=== PATIENT | female | born 1935 | race Caucasian/White ===

== ENCOUNTER 2018-06-11 11:31 | Emergency (ER) | payer OTHER, BC ==
--- NOTE | 2018-06-11 12:29 | EDPHY ---
H & P Stated Complaint: episode of confusion @ 10am-[id number]--keq resolved Time Seen by Provider: 06/11/18 12:28 - Personal History Current Tetanus Diphtheria and Acellular Pertussis (TDAP): No - Medical/Surgical History Hx Asthma: No Hx Chronic Respiratory Disease: No Hx Diabetes: No Hx Cardiac Disease: No Hx Renal Disease: No Hx Cirrhosis: No Hx Alcoholism: No Hx HIV/AIDS: No Hx Splenectomy or Spleen Trauma: No Other PMH: appy 1965. hyperlipidemia - Social History Smoking Status: Never smoked Constitutional: Initial Vital Signs Temperature (C) 36.4 C 06/11/18 11:37 Heart Rate 89 06/11/18 11:37 Respiratory Rate 16 06/11/18 11:37 Blood Pressure 150/81 H 06/11/18 11:37 O2 Sat (%) 98 06/11/18 11:37 O2 Delivery Mode Room Air Allergies/Adverse Reactions: Sulfa (Sulfonamide Antibiotics) Allergy (Verified 06/11/18 11:36) Home Medications: Medication Instructions Recorded Zetia 06/11/18 Medical Decision Making - Diagnostics Imaging: Discussed imaging studies w/ call center associate Radiologist, I viewed and interpreted images myself ED Course/Re-evaluation: CHIEF COMPLAINT: Memory loss/confusion HISTORY OF PRESENT ILLNESS: The patient is an 83 y/o female arriving with her for evaluation of a period of confusion this morning. She does not remember this incident and is not aware that anything was wrong. Her says around 09:00 this morning while at the table for breakfast she had a period of confusion and had difficulty remembering details for a 1-2-hour period. These symptoms have completely resolved. She denies weakness, paresthesias, headache, vision changes, hearing difficulty, or other complaints. No recent illness or trauma. She says, "I feel like I could get up and vacuum the hospital." REVIEW OF SYSTEMS: A comprehensive 10 system review of systems is otherwise negative aside from elements mentioned in the history of present illness and medical decision making. PHYSICAL EXAM: HR, BP, O2 Sat, RR. Temp noted General Appearance: Alert, well hydrated, appropriate, and non-toxic appearing. Head: Atraumatic without scalp tenderness or obvious injury Eyes: Pupils equal, round, reactive to light and accommodation, EOMI, no trauma , no injection. Nose: Atraumatic, no rhinorrhea, clear. Throat: Mucus membranes moist. Neck: Supple, nontender, no lymphadenopathy. Respiratory: No retractions, no distress, no wheezes, and no accessory muscle use. Lungs are clear to auscultation bilaterally. Cardiovascular: Regular rate and rhythm, no murmurs, rubs, or gallops. Good capillary refill all extremities. Gastrointestinal: Abdomen is soft, nontender, non-distended, no masses, no rebound, no guarding, no peritoneal signs. Musculoskeletal: Normal active ROM of all extremities, atraumatic. Neurological: Alert, appropriate, and interactive. The patient has non-focal cranial nerves, motor, sensory, and cerebellar exam. Skin: No rashes, good turgor, no nodules on palpation. Past medical history: Hyperlipidemia Past surgical history: appendectomy Family history: Noncontributory Social history: Visiting from [place]. Son lives locally. DIAGNOSTICS/PROCEDURES/CRITICAL CARE TIME: Brain MRI: nothing acute DIFFERENTIAL DIAGNOSIS: The differential diagnosis for the patient's neurologic deficits included but was not limited to peripheral causes, central causes including CVA, TIA, electrolyte abnormalities and dehydration, cardiogenic causes, atypical causes like migraine syndrome. MEDICAL DECISION MAKING: This is an 83 y/o female who presents after a 2-hour period of amnesia this morning with no other associated deficits. She has a normal neuro exam. Presentation is consistent with transient global amnesia. CVA less likely. Brain MRI ordered for further evaluation. Nothing acute on MRI, which is consistent with transient global amnesia. Reevaluated patient and discussed findings. She continues to have a normal exam here. Discussed standard care instructions and recommended follow up with her doctor upon returning home as needed. Return precautions discussed. She is comfortable with plan for discharge. - Data Points Laboratory Results: Laboratory Results 06/11/18 12:06 06/11/18 12:06 06/11/18 06/11/18 12: 12:06 WBC 7.19 10^3/uL 10^3/uL (3.80-9.50) RBC 4.75 10^6/uL 10^6/uL (4.18-5.33) Hgb 14.2 g/dL g/dL (12.6-16.3) Hct 42.1 % % (38.0-47.0) MCV 88.6 fL fL (81.5-99.8) MCH 29.9 pg pg (27.9-34.1) MCHC 33.7 g/dL g/dL (32.4-36.7) RDW 12.5 % % (11.5-15.2) Plt Count 230 10^3/uL 10^3/uL (150-400) MPV 9.9 fL fL (8.7-11.7) Neut % (Auto) 74.5 % H % (39.3-74.2) Lymph % (Auto) 15.9 % % (15.0-45.0) [place] % (Auto) 6.4 % % (4.5-13.0) Eos % (Auto) 2.1 % % (0.6-7.6) Baso % (Auto) 0.8 % % (0.3-1.7) Nucleat RBC Rel Count 0.0 % % (0.0-0.2) Absolute Neuts (auto) 5.36 10^3/uL 10^3/uL (1.70-6.50) Absolute Lymphs (auto) 1.14 10^3/uL 10^3/uL (1.00-3.00) Absolute Monos (auto) 0.46 10^3/uL 10^3/uL (0.30-0.80) Absolute Eos (auto) 0.15 10^3/uL 10^3/uL (0.03-0.40) Absolute Basos (auto) 0.06 10^3/uL 10^3/uL (0.02-0.10) Absolute Nucleated RBC 0.00 10^3/uL 10^3/uL (0-0.01) Immature Gran % 0.3 % % (0.0-1.1) Immature Gran # 0.02 10^3/uL 10^3/uL (0.00-0.10) Sodium 141 mEq/L mEq/L (135-145) Potassium 3.9 mEq/L mEq/L (3.3-5.0) Chloride 105 mEq/L mEq/L (97-110) Carbon Dioxide 26 mEq/l mEq/l (22-31) Anion Gap 10 mEq/L mEq/L (8-16) BUN 18 mg/dL mg/dL (7-23) Creatinine 0.8 mg/dL mg/dL (0.6-1.0) Estimated GFR > 60 Glucose 98 mg/dL mg/dL (70-100) Calcium 9.2 mg/dL mg/dL (8.5-10.4) Departure - Departure Disposition: Home, Routine, Self-Care Clinical Impression: Transient global amnesia Condition: Good Instructions: Transient Global Amnesia (ED) Additional Instructions: Follow up with your primary care provider upon your return home as needed. Return to the ED for headache, weakness, numbness, speech difficulty, vision changes, or any other worsening of condition. Referrals: Graciela Richards MD [place] [place] - As per Instructions Report Scribed for: Antione Ellis Report Scribed by: Afshan Schulte Date of Report: 06/11/18 Time of Report: 12:29
[2018-06-11 12:51] LABS: PLATELET COUNT 230 10^3/uL (150-400)
[2018-06-11 14:42] VITALS: BP 137/88
== END 2018-06-11 14:41 | disposition home or self-care (01) ==
DX: G45.4 Transient global amnesia (principal); E78.5 Hyperlipidemia, unspecified